=== PATIENT | male | born 1940 | race Caucasian/White ===

== ENCOUNTER → 2016-09-07 | Outpatient (CLI) | payer MEDICARE, BC ==
[~2016-09-07] VITALS: Ht 185.4 cm; Wt 117.9 kg
[~2016-09-07] MED LIST: AMIO200T2 PO; ASPI325T4 PO; ASPI81TA9 PO; DOFE500C PO; GLUC1TAB33 PO; IOHEXOL 180 MG/ML 10 ML VIAL. IJ ONE; LORA10TA3 PO; LOSA50TA2 PO; MULT-246 PO; OMEP20CA5 PO; RIVA10TA PO; TAMS0.4C2 PO; lidex
[2016-09-07 09:41] VITALS: BP 125/75
[2016-09-07 11:45] VITALS: BP 113/71
--- NOTE | 2016-09-07 12:58 | RAD ---
Lumbar myelogram, 09/07/2016: History: Bilateral leg pain Under local anesthesia, aseptic conditions and fluoroscopic guidance a lumbar puncture was performed at the mid L2 level utilizing a 25-gauge Bryan spinal needle. Good clear CSF flow was obtained following which 14 cc of Omnipaque 180 was injected into the thecal sac. The spinal needle was then removed and appropriate digital images performed. 2.8 minutes of fluoroscopy time was utilized. 12 fluoroscopic spot images were recorded. The patient tolerated the procedure well and was sent to CT in good condition. The following findings are delineated on the myelogram: 1. There is a moderate anterior extradural defect at L4-5 as well as mild posterior and bilateral extradural defects at that level. The combination of findings is causing mild central spinal stenosis. On the upright myelogram images the thecal sac narrows down to approximately 7 mm in AP diameter at this level. No significant instability is seen in this region on flexion or extension. 2. Mild anterior surgical defects are present at L2-3 and L3-4. 3. The lateral extradural defects at L4-5 are producing mild impressions upon the thecal sac at the origins of the L5 nerve root sleeves bilaterally. The L5 nerve root sleeves do opacify symmetrically. 4. The other lower lumbar nerve root sleeves are unremarkable. CT of the lumbar spine-post myelogram, 09/07/2016: Multidetector CT imaging was performed with multiplanar reconstructions produced. The following findings are delineated: 1. At L1-2 there is slight posterior disc bulging, more so on the left. The central spinal canal and neural foramina are well maintained. 2. At L2-3 there is a vacuum disc phenomenon with moderate posterior disc bulging most prominent laterally on both sides. There is mild posterior marginal spurring. The central spinal canal is well-preserved. There is only mild inferior foraminal narrowing bilaterally. 3. At L3-4 there are mild degenerative changes involving the facet joints with moderate posterior ligamentous thickening. There is mild posterior disc bulging and marginal spurring. The combination of findings is causing moderate inferior foraminal narrowing bilaterally. The central spinal canal is well-preserved. 4. At L4-5 there is a vacuum disc phenomena with moderate posterior marginal spurring. There is moderate posterior disc protrusion with slight superior extension of a disc fragment just to the left of midline. There is moderate hypertrophic degenerative change involving the facet joints bilaterally with posterior ligamentous thickening. The combination of findings is causing mild central spinal stenosis in a triangular configuration. In the supine position the thecal sac measures 9 to 10 mm in AP dimension at the midline at this level. There is moderate inferior foraminal encroachment bilaterally probably due to spurs. 5. At L5-S1 there are moderate hypertrophic degenerative changes involving the facet joints. There is mild disc space narrowing with mild posterior disc bulging. The central spinal canal and neural foramina are well preserved. IMPRESSION: 1. Moderate multilevel degenerative change as described above. 2. Mild central spinal stenosis at L4-5, best demonstrated on the upright myelogram images, due to a combination of disc protrusion, marginal spurring and facet joint arthropathy.
== END | disposition home or self-care (01) ==
LOC: RAD 11:25
PROVIDERS: ATTEND Neurological Surgery
DX: M54.16 Radiculopathy, lumbar region (principal); M48.06 Spinal stenosis, lumbar region; M48.07 Spinal stenosis, lumbosacral region
CPT/HCPCS: 72132; 72265

== ENCOUNTER → 2016-10-08 | Outpatient (CLI) | payer MEDICARE, BC ==
[2016-09-07 11:45] VITALS: BP 113/71
[~2016-10-08] MED LIST changes: +BUPIVACAINE 0.5% 50 ML VIAL. INJ ONE; -IOHEXOL 180 MG/ML 10 ML VIAL. IJ ONE; +IOHEXOL 300 MG/ML 50 ML VIAL. INT ART ONE; +LIDOCAINE 1% Multi-Dose 20 ML VIAL. ID ONE; +methylPREDNISolone ACETATE 40 MG/ML VIAL. INT ART ONE
--- NOTE | 2016-10-08 13:54 | KCIC ---
PROCEDURE Therapeutic right hip injection using fluoroscopic guidance. HISTORY Hip pain. TECHNIQUE The procedure was explained to the patient as were potential risks, including infection, bleeding or allergic reaction. All questions were answered. Informed written and verbal consent was obtained. The hip was prepped and draped in the usual sterile manner. Following administration of local anesthetic, a 22-gauge spinal needle was advanced into the hip joint without difficulty, with care taken to avoid the vascular structures. Stylet was removed and following negative aspiration, a mixture of 4 cc Omnipaque-300, 2 cc (80 mg) Depo-Medrol, 4 cc 0.5% Marcaine and 4 cc 1% lidocaine were injected without difficulty. Fluoroscopy demonstrates uniform and satisfactory distribution of the injection through the hip. The needle was removed. There was good hemostasis at the injection site. The patient left in stable condition without immediate complication. The patient was given postprocedural instructions, instructed to contact us or the emergency room if there are any complications. A single spot image was obtained. FLUOROSCOPY TIME:0:22 IMPRESSION Right hip steroid injection using fluoroscopic guidance. Electronically signed by: Jurgen Perez (Oct 08, 2016 13:52:13)
== END | disposition home or self-care (01) ==
LOC: KCIC 10:19
PROVIDERS: ATTEND Orthopaedic Surgery Sports Medicine
DX: M25.551 Pain in right hip (principal); Z82.49 Family history of ischemic heart disease and other diseases of the circulatory system; Z95.0 Presence of cardiac pacemaker
CPT/HCPCS: 20610; 77002

== ENCOUNTER → 2016-10-21 | Outpatient (CLI) | payer MEDICARE, BC ==
[2016-09-07 11:45] VITALS: BP 113/71
[~2016-10-21] MED LIST changes: -BUPIVACAINE 0.5% 50 ML VIAL. INJ ONE; +BUPIVACAINE MPF 0.5% 10 ML VIAL for KCIC. SQ ONE
--- NOTE | 2016-10-21 13:49 | KCIC ---
PROCEDURE Therapeutic left hip injection using fluoroscopic guidance. HISTORY Hip pain. TECHNIQUE The procedure was explained to the patient as were potential risks, including infection, bleeding or allergic reaction. All questions were answered. Informed written and verbal consent was obtained. The hip was prepped and draped in the usual sterile manner. Following administration of local anesthetic, a 22-gauge spinal needle was advanced into the hip joint without difficulty, with care taken to avoid the vascular structures. Stylet was removed and following negative aspiration, a mixture of 4 cc Omnipaque-300, 2 cc (80 mg) Depo-Medrol, 4 cc 0.5% Marcaine and 4 cc 1% lidocaine were injected without difficulty. Fluoroscopy demonstrates uniform and satisfactory distribution of the injection through the hip. The needle was removed. There was good hemostasis at the injection site. The patient left in stable condition without immediate complication. The patient was given postprocedural instructions, instructed to contact us or the emergency room if there are any complications. A single spot image was obtained. FLUOROSCOPY TIME: 44 seconds Electronically signed by: Gavin Boyd MD (Oct 21, 2016 13:48:04)
== END | disposition home or self-care (01) ==
LOC: KCIC 12:12
PROVIDERS: ATTEND Orthopaedic Surgery Sports Medicine
DX: M25.552 Pain in left hip (principal)
CPT/HCPCS: 20610; 77002; J1030; Q9967

== ENCOUNTER → 2017-01-10 | Outpatient (CLI) | payer MEDICARE, BC ==
[2016-09-07 11:45] VITALS: BP 113/71
[~2017-01-10] MED LIST changes: +BUPIVACAINE MPF 0.5% 10 ML VIAL for KCIC. IJ ONE; -BUPIVACAINE MPF 0.5% 10 ML VIAL for KCIC. SQ ONE
--- NOTE | 2017-01-10 11:41 | KCIC ---
PROCEDURE Therapeuticrighthip injection using fluoroscopic guidance. HISTORY Hip pain. TECHNIQUE The procedure was explained to the patient as were potential risks. All questions were answered. Informed written consent was obtained. The hip was prepped and draped in the usual sterile manner. Following administration of local anesthetic, a 22-gauge spinal needle was advanced into the hip joint without difficulty, with care taken to avoid the vascular structures. Stylet was removed and following negative aspiration, a mixture of 4 cc Omnipaque-300, 2 cc (80 mg) Depo-Medrol, 4 cc 0.5% ropivacaine and 4 cc 1% lidocaine were injected without difficulty. Fluoroscopy demonstrates uniform and satisfactory distribution of the injection through the hip. The needle was removed. There was good hemostasis at the injection site. The patient left in stable condition without immediate complication. The patient was given postprocedural instructions, instructed to contact us or the emergency room if there are any complications. COMPARISON none FINDINGS Single fluoroscopic image shows needle tip at the lateral femoral head/neck junction. Contrast material fills the joint space. 00:38 fluoroscopic time used IMPRESSION Fluoroscopic guided right hip steroid injection Electronically signed by: Gavin Davalos (January 10, 2017 11:40:34)
== END | disposition home or self-care (01) ==
LOC: KCIC 10:07
PROVIDERS: ATTEND Orthopaedic Surgery Sports Medicine
DX: M25.551 Pain in right hip (principal); G89.29 Other chronic pain
CPT/HCPCS: 20610; 77002; J1030; Q9967

== ENCOUNTER → 2017-06-17 | Outpatient (CLI) | payer MEDICARE, BC ==
[2016-09-07 11:45] VITALS: BP 113/71
[~2017-06-17] MED LIST changes: +ASPI-612 PO; -ASPI325T4 PO; +ASPI325T8 PO; -ASPI81TA9 PO; -BUPIVACAINE MPF 0.5% 10 ML VIAL for KCIC. IJ ONE; -IOHEXOL 300 MG/ML 50 ML VIAL. INT ART ONE; -LIDOCAINE 1% Multi-Dose 20 ML VIAL. ID ONE; -methylPREDNISolone ACETATE 40 MG/ML VIAL. INT ART ONE
--- NOTE | 2017-06-17 10:41 | RAD ---
INDICATION: CHRONIC PANSINUSITIS COMPARISON: 08/15/2012 TECHNIQUE: Axial CT images were obtained through the paranasal sinuses. FINDINGS: No retro-orbital mass or hematoma. Mastoid air cells are well aerated. Mild mucosal thickening of the maxillary sinuses. The minimally aerated frontal sinuses not opacified. Trace fluid in ethmoid air cells. Sphenoid sinuses well aerated. IMPRESSION: Mild mucosal thickening of the maxillary sinuses PQRS Compliance Statement: One or more of the following individualized dose reduction techniques were utilized for this examination: 1. Automated exposure control 2. Adjustment of the mA and/or kV according to patient size 3. Use of iterative reconstruction technique
== END | disposition home or self-care (01) ==
LOC: CT 07:57
PROVIDERS: ATTEND Otolaryngology
DX: J32.4 Chronic pansinusitis (principal)
CPT/HCPCS: 70486

== ENCOUNTER → 2020-03-20 | Outpatient (CLI) | payer MEDICARE, BC ==
[2016-09-07 11:45] VITALS: BP 113/71
[~2020-03-20] MED LIST changes: -AMIO200T2 PO; +AMIO200T4 PO; +CONTRAST GIVEN. MC PRN; +IOHEXOL 350 MG/ML 100 ML VIAL. IV ONE; +LOSA-73 PO; -LOSA50TA2 PO
[2020-03-20 09:09] LABS: CALCIUM 8.6 mg/dL (8.5-10.1); CREATININE 1.3 mg/dL (0.7-1.3)
[2020-03-20 09:15] LABS: POTASSIUM 4.2 mmol/L (3.5-5.1)
--- NOTE | 2020-03-20 10:08 | RAD ---
CTA OF THE CHEST WITH AND WITHOUT CONTRAST Clinical indications: Dyspnea. Technique: Noncontrast axial localizer was performed. After IV infusion of 80 cc of Omnipaque 350, helical CT scanning of the chest was performed using the CT pulmonary embolism protocol. A coronal MIP reconstruction was generated. PQRS compliance Statement One or more of the following individualized dose reduction techniques were utilized for this study: 1. Automated exposure control 2. Adjustment of the mA and/or kV according to patient size 3. Use of iterative reconstruction technique Comparison: None available. Findings: No pulmonary embolism is evident. Diffuse ectasia of the thoracic aorta is seen. This measures up to 4.6 cm in greatest caliber within the ascending aorta. Evaluation for intimal flap or dissection cannot be completed due to lack of contrast opacification of the thoracic aorta. There is calcified atheromatous disease of the coronary arteries. Heart size is mildly enlarged but no pericardial effusion is seen. No enlarged thoracic lymphadenopathy is evident. A small hiatal hernia is seen. Mild posterior pleural thickening is seen but no pleural effusion is evident. Breathing motion artifact is apparent. Ill-defined scattered groundglass lung infiltrates are seen bilaterally which most likely is due to atelectasis but may be seen with pulmonary edema. Otherwise no consolidative lung infiltrates with air bronchograms are round lung masses are seen. No pneumothorax is seen. The proximal bronchial tree it is patent. No adrenal mass is evident. Hepatic cysts are seen. No lytic process is seen. IMPRESSION: No pulmonary embolism. Bilateral groundglass lung infiltrates which most likely is due to atelectasis given decreased lung volumes. This may be seen with pulmonary edema as well. Otherwise no dense lung consolidation with air bronchograms or lung mass is seen. Calcified atheromatous disease of the coronary arteries. Mild cardiomegaly. Diffuse ectasia of the thoracic aorta. Small hiatal hernia. Electronically signed by: Romaine Gardner MD (03/20/2020 10:05 AM) [id number]
== END | disposition home or self-care (01) ==
LOC: CT 07:46
PROVIDERS: ATTEND Internal Medicine Critical Care Medicine
DX: J81.1 Chronic pulmonary edema (principal); I77.810 Thoracic aortic ectasia; R91.8 Other nonspecific abnormal finding of lung field; I25.10 Atherosclerotic heart disease of native coronary artery without angina pectoris; I51.7 Cardiomegaly; K44.9 Diaphragmatic hernia without obstruction or gangrene; K76.89 Other specified diseases of liver
CPT/HCPCS: 36415; 71275; 80048; Q9967